=== PATIENT | female | born 1960 | race Caucasian/White ===

== ENCOUNTER → 2023-05-04 07:44 | Outpatient (REF) | payer OTHER, SELFPAY | LOC: RAD 07:44 | PROVIDERS: ATTENDING PHYSICIAN Internal Medicine Rheumatology; FAMILY PHYSICIAN Internal Medicine | DX: M81.0 Age-related osteoporosis without current pathological fracture (principal) | CPT/HCPCS: 77080 ==

== ENCOUNTER → 2023-11-14 16:55 | Outpatient (REF) | payer OTHER, SELFPAY | LOC: WDC 16:55 | PROVIDERS: ATTENDING PHYSICIAN Obstetrics & Gynecology; FAMILY PHYSICIAN Internal Medicine | DX: Z12.31 Encounter for screening mammogram for malignant neoplasm of breast (principal) | CPT/HCPCS: 77063; 77067 ==